=== PATIENT | female | born 1970 | race Caucasian/White ===

== ENCOUNTER 2025-08-22 08:10 | Outpatient (AMB) | payer BC, SELFPAY ==
--- NOTE | 2025-08-22 08:13 | MHC.PC.OV ---
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 Accompanied by: Self / Same As Patient Allergies prochlorperazine (From Compazine) Allergy (Intermediate, Verified 08/22/25 08:17) welts Medication List - Last Reconciled 08/22/25 by Monalisa Garcia MD No Known Home Meds Tobacco use date assessed: 08/22/25 Dental Screening Dental Screen Date: 08/22/25 Did you have a dental visit in the last 12 months?: Yes Did you have a dental problem in the last 6 months where you did not have access to dental care?: No Was dental information given to patient?: Patient has dentist HPI HPI Comments History of Present Illness Details The patient is a 55 year old female presenting for re-establishment of care and an annual physical exam. Generalized Anxiety Disorder: Her SUZAN-7 score is 0. She reports occasional trouble sleeping, which she attributes to caffeine intake, and also grinds her teeth. Heart Murmur: The patient reports a lifelong history of positional palpitations, specifically experiencing rapid heartbeats if she lies down too quickly. She has to stand up and then lie down again slowly to avoid this sensation. She recalls a past workup for decreased exercise tolerance which included a stress test and Holter monitor, both of which were normal. At that time, she was told she was deconditioned. She reports she may have had an echocardiogram many years ago but is unsure. Cerumen Impaction: The patient has a history of cerumen impaction in both ears. She has used Debrox, but it has not been very effective. She previously had the wax removed via vacuum suction by an ENT. Preventative Care: She is up-to-date on her mammogram, which was done a week ago, and her colonoscopy, which is not due until 2028. She has completed the shingles vaccine series. She has not yet received her annual flu shot or a pneumonia vaccine. She has an upcoming appointment with a new medical office technology instructor for her gynecological exam and has not had an eye exam in a long time. Social History: - Diet: Vegetarian. - Caffeine: Drinks a double latte espresso in the morning and sometimes another coffee mid-day. - Anxiety: SUZAN-7 score of 0. - Depression: PHQ-2 score of 0. PFSH Medical History (Updated 08/22/25 @ 09:05 by Monalisa Garcia MD) Murmur Routine medical exam Vitamin D deficiency Surgical History (Updated 08/22/25 @ 07:45 by Monalisa Garcia MD) H/O knee surgery History of colonoscopy (~03/16/19) Family History (Updated 08/22/25 @ 07:46 by Monalisa Garcia MD) Other Basal cell carcinoma Coronary artery disease Family history of thyroid problem Osteoporosis Ovarian cancer Primary hypertension Social History Housing: House Patient Tobacco Use Status: Never used Tobacco e-Cigarette/Vaping Use: Never Used Current occupational status: retired Questionnaire PHQ-9 Over the last 2 weeks, how often have you been bothered by any of the following problems? 1. Little interest or pleasure in doing things: not at all 2. Feeling down, depressed, or hopeless: not at all 3. Trouble falling or staying asleep, or sleeping too much: not at all 4. Feeling tired or having little energy: not at all 5. Poor appetite or overeating: not at all 6. Feeling bad about yourself - or that you are a failure or have let yourself or your family down: not at all 7. Trouble concentrating on things, such as reading the newspaper or watching television: not at all 8. Moving or speaking so slowly that other people could have noticed. Or the opposite - being so fidgety or restless that you have been moving around a lot more than usual: not at all 9. Thoughts that you would be better off or of hurting yourself in some way: not at all Total score: 0 Depression Screening Interpretation: Negative Depression Screening Done: Yes 21797 - PHQ-9 Billing: Yes Source: Developed by Drs. Rustam Norris, Tati Kimble, Rick Montgomery and colleagues, with an educational dane from [employer]. Thrive Questionnaire Date Thrive assessed: 08/22/25 I am a: Patient What is your living situation today?: I have a steady place to live Within the past 12 months, did the food you bought not last and you didn't have the money to get more?: Never true Within the past 12 months, did you worry whether your food would run out before you got money to buy more?: Never true Do you have trouble paying for medicines?: No Do you have trouble getting transportation to medical appointments?: No Do you have trouble paying your heating and electricity bill?: No Do you have trouble taking care of your child, family member or friend?: No Do you have trouble with day-to-day activities such as bathing, preparing meals, shopping, managing finances, etc.?: No Are you currently unemployed and looking for a job?: No Are you interested in more education?: No Please select the resources that you would like help with: None THRIVE Score: 0 AUDIT C Alcohol Use Questionnaire (AUDIT-C) 1. How often do you have a drink containing alcohol?: Monthly or less 2. How many drinks containing alcohol do you have on a typical day when you are drinking?: 1 or 2 3. How often do you have six or more drinks on one occasion?: Never Total Score: 1 SUZAN-7 AMB Questionnaire SUZAN-7 Date SUZAN - 7 assessed: 08/22/25 Feeling nervous, anxious, or on edge: 0 = Not at all Not being able to stop or control worryin = Not at all Worrying too much about different things: 0 = Not at all Trouble relaxin = Not at all Being so restless that it is hard to sit still: 0 = Not at all Becoming easily annoyed or irritable: 0 = Not at all Feeling afraid as if something awful might happen: 0 = Not at all Total SUZAN-7 score (0-4 normal; 5-9 mild; 10-14 moderate; 15-21 severe): 0 Source: Developed by Drs. Rustam Norris, Tati Kimble, Rick Montgomery and colleagues, with an educational dane from [employer]. Review of Systems Narrative Review of Systems - Constitutional. Denies fatigue. - Eyes: Denies issues with vision but has not had an exam in a long time. - Ears: Reports bilateral ear fullness due to wax buildup. - Cardiovascular: Reports palpitations and a pulsating sensation in her abdomen after eating and when lying down quickly. Denies spasm or tightness. Denies leg swelling. - Gastrointestinal: Denies abdominal pain. - Psychiatric: Reports feeling fine. Denies depression. Reports occasional anxiety. - Neurological: Reports bruxism. Reports waking in the night, attributed to caffeine. Physical exam (Primary Care) Vital Signs: Last Vital Signs Temp 97.1 F 08/22/25 08:16 Pulse 87 08/22/25 08:16 Resp 16 08/22/25 08:16 BP 114/80 08/22/25 08:16 Pulse Ox 96 08/22/25 08:16 Oxygen Delivery Method Room Air 08/22/25 08:16 BMI result Body Mass Index 25.9 Tobacco/Smoking Status: Tobacco use Status Tobacco use date assessed 08/22/25 08/22/25 08:15 Patient Tobacco Use Status Never used Tobacco 08/22/25 08:21 e-Cigarette/Vaping Use Never Used 08/22/25 08:21 PHQ-9: PHQ-9 Score PHQ-9: Total score 0 08/22/25 11:08 Depression Screening Interpretation: Negative Thrive Assessment: Date of Thrive Assessment Date Thrive assessed 08/22/25 08/22/25 11:09 Narrative Physical Exam - Gen: NAD - Head: Normocephalic. No tenderness to palpation over sinuses. - Ears: Bilateral cerumen impaction. - Mouth/Throat: Oropharynx is clear with no redness. - Neck: No lymphadenopathy. - Lungs: Clear to auscultation bilaterally. No wheezing. - Cardiovascular: Regular rhythm. Auscultation reveals a very soft murmur. Normal heart sounds. - Abdomen: Soft, non-distended. Normal bowel sounds. Aortic pulsations are palpable. - Extremities: no edema bilaterally Coding Level of Care Code Est Pt Prev Care 40-64y(54173) Complex visit Add On G2211 Diagnoses Routine medical exam Z00.00 Murmur R01.1 Additional Codes PHQ-9 - 66732 - PHQ-9 Billing: Yes ([id number]) Assessment & Plan Assessment & Plan (1) Routine medical exam: Code(s): Z00.00 - Encounter for general adult medical examination without abnormal findings Category: Medical (2) Murmur: Code(s): R01.1 - Cardiac murmur, unspecified Category: Medical Plan Assessment and Plan 1. Annual Physical Exam - The patient is a 55-year-old female presenting for a physical and to re-establish care. - Screening for anxiety and depression are negative. - Will obtain baseline labs including a comprehensive metabolic panel, complete blood count, thyroid level, and vitamin D level. 2. Heart Murmur and Palpitations - A soft murmur was noted on exam. - The patient reports a lifelong history of positional palpitations. - An echocardiogram will be ordered to evaluate valve structure - The referral will be placed, and the patient will be contacted by the department for scheduling. 3. Cerumen Impaction - The patient has a history of significant cerumen impaction, previously requiring ENT intervention. - Bilateral impaction was noted on exam. - She will be advised to use Debrox to soften the wax and then follow up with ENT for removal if needed. 4. Health Maintenance - The patient is up to date on her mammogram and colonoscopy. - She has an upcoming gynecology appointment. - She needs to schedule an eye exam. 5. Anxiety - The patient reports some anxiety manifested as bruxism and insomnia, which she relates to caffeine intake. - Her SUZAN-7 score is 0. - She will be advised to taper her caffeine intake. Plan - Will order baseline labs including a comprehensive metabolic panel, CBC, thyroid level, and vitamin D level. - Will order a baseline echocardiogram to evaluate the heart murmur and symptoms of palpitations. - Advised patient to continue using Debrox to soften ear wax and to contact ENT for removal if necessary. - Recommended tapering caffeine intake to help with bruxism and sleep disturbances. - Follwo up in 1 year for physical or sooner if needed Discussion Notes Patient Instructions - You will go for blood tests today. This will check your kidney and liver function, blood counts, thyroid, and vitamin D levels. - We will order an ultrasound of your heart, called an echocardiogram, to look into the heart murmur we heard and your feeling of a racing heart. Our referral team will call you within two weeks to help schedule this. Orders: Orders Comprehensive Met. Panel Today E55.9 - Vitamin D deficiency, unspecified, Z00.00 - Encounter for general adult medical examination without abnormal findings TSH reflex Free T4 Today E55.9 - Vitamin D deficiency, unspecified, Z00.00 - Encounter for general adult medical examination without abnormal findings Complete Blood Count Auto Diff Today E55.9 - Vitamin D deficiency, unspecified, Z00.00 - Encounter for general adult medical examination without abnormal findings Lipid Panel Today E55.9 - Vitamin D deficiency, unspecified, Z00.00 - Encounter for general adult medical examination without abnormal findings CA echo transthoracic complete Today R01.1 - Cardiac murmur, unspecified Medications: New [id number] 357 240-150 mcg (Alive Women's 50 Plus Ultra Multivitamin) tabs PO
[2025-08-22 08:16] VITALS: BP 114/80; PULSE 87; RESP 16; TEMP 36.2; O2SAT 96; BMI 25.9
== END 2025-08-22 09:13 | disposition home or self-care (01) ==
PROVIDERS: PCP Internal Medicine; Visit Provider Internal Medicine
DX: Z00.00 Encounter for general adult medical examination without abnormal findings (principal); R01.1 Cardiac murmur, unspecified

== ENCOUNTER 2025-08-22 09:14 | Outpatient (REF) | payer BC, SELFPAY ==
[2025-08-22 10:57] LABS: MANUAL DIFF FLAG NO
[2025-08-22 11:19] LABS: Hematocrit 43.3 % (37.0-47.0); Hemoglobin 14.8 g/dl (12.0-16.0); Imm Gran Abs Auto 0.03 X10*3/uL (0.00-0.03); Imm Gran Pct Auto 0.4 % (0.0-0.4); Lymphocytes Absolute Auto 1.7 X10*3/uL (1.2-4.9); Mean Corpuscular HGB Conc 34.2 g/dl (31.0-35.0); Mean Corpuscular Hemoglobin 30.5 pg (27.0-33.0); Mean Corpuscular Volume 89.3 fL (80.0-98.0); NRBC Abs Auto 0.000 X10*3/uL (0.0-0.012); NRBC Pct Auto 0.0 /100WBC (0.0-0.2); Platelet Count 295 X10*3/uL (160-400); Red Blood Count 4.85 X10*6/uL (4.20-5.50); White Blood Count 7.6 X10*3/uL (4.8-10.8)
[2025-08-22 12:01] LABS: Alanine Aminotransferase 18 U/L (0-31); Albumin Level 4.9 g/dL (3.5-5.0); Alkaline Phosphatase 71 U/L (39-117); Anion Gap 10 (12-20); Aspartate Amino Transferase 26 U/L (5-31); Blood Urea Nitrogen 14 mg/dL (9-16); Calcium 9.3 mg/dL (8.4-10.2); Carbon Dioxide 27 mmol/L (22-29); Chloride 107 mmol/L (96-108); Cholesterol 188 mg/dL (<200); Estimated Glomerular Filt Rate > 60; HDL Cholesterol 68 mg/dL (>40); Potassium 4.2 mmol/L (3.3-5.1); Sodium 140 mmol/L (135-145); Total Protein 7.6 g/dL (6.5-8.0); Triglycerides 84 mg/dL (<150)
== END 2025-08-22 09:15 | disposition home or self-care (01) ==
LOC: HO.10HDL 09:14
PROVIDERS: Visit Provider Internal Medicine
DX: Z00.00 Encounter for general adult medical examination without abnormal findings (principal); E55.9 Vitamin D deficiency, unspecified; R01.1 Cardiac murmur, unspecified
CPT/HCPCS: 36415; 80053; 80061; 84443; 85025; 96127